=== PATIENT | male | born 1985 | race Caucasian/White ===

== ENCOUNTER 2016-12-12 10:25 | Emergency (ER) | payer BC ==
[2016-12-12 10:47] VITALS: BP 138/83
--- NOTE | 2016-12-12 11:20 | EDM.PDOC ---
ED HPI GENERAL MEDICAL PROBLEM - General Chief Complaint: ENT Problem Stated Complaint: DENTAL PAIN Time Seen by Provider: 12/12/16 11:06 Source of Information: Reports: Patient History Limitations: Reports: No Limitations - History of Present Illness INITIAL COMMENTS - FREE TEXT/NARRATIVE: Patient is a 31 y/o male who presents to the E.D. complaining of pain to the wisdom tooth on the lower left side. States he has had some aching to the specific site for the past few months. States last night with brushing his teeth the pain severely worsened. Patient was unable to sleep all night due to throbbing sensation. He had to call off work today. He has not seen a dentist for quite some time. He does have dental insurance. Pain is localized with no radiation. Pain is constant with waxing waning in intensity. Worsened with chewing on the affected side. He does not note any swelling to the gum lines. He denies fever, chills, n/v, or any additional complaints. Has only utilized oragel with no relief. Tooth/Teeth Pain Score (Numeric/FACES): 6 - Related Data Allergies Allergy/AdvReac Type Severity Reaction Status Date / Time No Known Allergies Allergy Verified 12/12/16 10:47 Home Meds: Home Meds traMADol [Ultram] 50 mg PO Q6H PRN #8 tablet 12/12/16 [Rx] Past Medical History - Past Health History Medical/Surgical History: Denies Medical/Surgical History Other Genitourinary History: Infected kidney at age 12 - Past Surgical History GI Surgical History: Reports: Appendectomy, Hernia Repair/Other, Other (See Below) Other GI Surgeries/Procedures: Intestinal blockage Social & Family History - Family History Family Medical History: Noncontributory - Tobacco Use Smoking Status *Q: Former Smoker Used Tobacco, but Quit: Yes Month Tobacco Last Used: Nov 2010 - Recreational Drug Use Recreational Drug Use: No ED ROS ENT - Review of Systems Review Of Systems: ROS reveals no pertinent complaints other than HPI. ED EXAM, ENT - Physical Exam Exam: See Below Exam Limited By: No Limitations General Appearance: Alert, WD/WN, No Apparent Distress Ears: Hearing Grossly Normal Nose: Normal Inspection Mouth/Throat: Normal Inspection, Normal Gums, Normal Lips, Normal Oropharynx, Other (Pain is isolated to the left lower jaw where wasn't is breaking through the gumline. There is no swelling along the gumline. It appears portion of tissue that was covering the top of the wisdom tooth was torn with compression his teeth. Pain is localized. No drainage noted. At this time I cannot see any significant decay to the affected tooth.). No: Trismus Head: Atraumatic, Normocephalic Neck: Normal Inspection, Supple, Non-Tender, Full Range of Motion Respiratory/Chest: No Respiratory Distress, Lungs Clear, Normal Breath Sounds, Chest Non-Tender Cardiovascular: Normal Peripheral Pulses, Regular Rate, Rhythm, No Murmur Neurological: Alert, Oriented, CN II-XII Intact, Normal Cognition, No Motor/ Sensory Deficits Psychiatric: Normal Affect, Normal Mood Skin: Warm, Dry, Intact, Normal Color Course - Vital Signs Last Recorded V/S: Last Vital Signs Temp 98.3 F 12/12/16 10:44 Pulse 75 12/12/16 10:44 Resp 16 12/12/16 10:44 BP 138/83 12/12/16 10:44 Pulse Ox 94 L 12/12/16 10:44 - Re-Assessments/Exams Free Text/Narrative Re-Assessment/Exam: No abscess present. Yale tooth is breaking through the gum tissue. No concerns for infection. Pain is localized mild with admission to the E.D. Offered dental injection to which the patient states the pain is a 3/10 and refuses. No antibiotics required. Discharge instructions as documented. Departure - Departure Time of Disposition: 11:22 Disposition: Home, Self-Care 01 Condition: Good Clinical Impression: Pain in tooth - Discharge Information Prescriptions: traMADol [Ultram] 50 mg PO Q6H PRN #8 tablet PRN Reason: Pain (Severe 7-10) Referrals: PCP,None [Primary Care Provider] - Forms: ED Department Discharge, ED Return to Work/School Form Additional Instructions: Call and make an appointment with a local dentist for definitive treatment. For pain take Tylenol 650 mg every 6 hours and ibuprofen 600 mg every 6 hours in alternating form for pain. Do not chew on the affected side. Utilize Orajel as needed. Take tramadol 1 tab every 6 hours as needed with Tylenol for severe pain. Do not drive or operate heavy equipment while taking the tramadol. Return to the ED as needed for any new or worsening symptoms. Suggest utilizing Sensodyne toothpaste twice daily.
== END 2016-12-12 11:34 | disposition home or self-care (01) ==
LOC: JD.ED 10:25
DX: K08.89 Other specified disorders of teeth and supporting structures (principal); Z87.891 Personal history of nicotine dependence
CPT/HCPCS: 99283